=== PATIENT | female | born 1990 | race Caucasian/White ===

== ENCOUNTER 2016-10-15 10:56 | Emergency (ER) ==
[2016-10-15 11:02] VITALS: BMI 52.8
[2016-10-15] MEDS ORDERED: TYLENOL PO STA (11:28)
[2016-10-15 11:38] LABS: FLU INTERNAL QC INTERNAL QC VALID; RAPID FLU A NEGATIVE (NEGATIVE); RAPID FLU B NEGATIVE (NEGATIVE)
--- NOTE | 2016-10-15 11:49 | ED.PDOC ---
General ED Provider: Dr. ISHA CUETO Chief Complaint: Cough Stated Complaint: Patient is a 26 year old female who comes to the Er with cough sore throat nasal conjestion and body aches for two days. Time Seen by Physician: 11:47 Mode of Arrival: Walk-In Information Source: Patient Exam Limitations: No limitations Primary Care Provider: NILAM OROZCO Nursing and Triage Documentation Reviewed and Agree: Yes Review of Systems - Review Of Systems Constitutional: Reports: No symptoms Eyes: Reports: Drainage Ears, Nose, Mouth, Throat: Reports: No symptoms Respiratory: Reports: Cough Cardiac: Reports: No symptoms GI: Reports: No symptoms : Reports: No symptoms Musculoskeletal: Reports: No symptoms Skin: Reports: No symptoms Neurological: Reports: No symptoms Endocrine: Reports: No symptoms Hematologic/Lymphatic: Reports: No symptoms All Other Systems: Reviewed and Negative Past Medical History - Past Medical History Previously Healthy: Yes Endocrine: Reports: None Cardiovascular: Reports: None Respiratory: Reports: None Hematological: Reports: None Gastrointestinal: Reports: None Genitourinary: Reports: None Neuro/Psych: Reports: None Musculoskeletal: Reports: None Cancer: Reports: None Last Menstrual Period: sep 26 - Surgical History General Surgical History: Reports: , Adenoidectomy - Family History Family History: Reports: Unknown - Social History Smoking Status: Former smoker Hx Substance Use: No Alcohol Screening: None Physical Exam - Physical Exam Appearance: Ill-appearing, Well-nourished Ill-appearing: Mild Eyes: ARNOLD, EOMI, Conjunctiva clear ENT: Ears normal, Nose normal, Oropharynx normal Respiratory: Airway patent, Breath sounds clear, Breath sounds equal, Respirations nonlabored Cardiovascular: RRR, Pulses normal, No rub, No murmur GI/: Soft, Nontender, No masses, Bowel sounds normal, No Organomegaly Musculoskeletal: Normal strength, ROM intact, No edema, No calf tenderness Skin: Warm, Dry, Normal color Neurological: Sensation intact, Motor intact, Reflexes intact, Cranial nerves intact, Alert, Oriented Psychiatric: Affect appropriate, Mood appropriate Critical Care Note - Critical Care Note Total Time (mins): 0 Course - Course Orders, Labs, Meds: Lab Review 10/15/16 11:15 Influenza A (Rapid) Negative Influenza B (Rapid) Negative Orders Category Date Time Status MOLECULAR GROUP A STREP Stat LAB 10/15/16 11:15 Completed RAPID FLU A/B Stat LAB 10/15/16 11:15 Completed STREP SCREEN Stat LAB 10/15/16 11:15 Completed Acetaminophen [Tylenol] MEDS 10/15/16 11:28 Discontinued 1,000 mg PO ONCE STA Medications Discontinued Medications Generic Name Dose Route Start Last Admin Trade Name Derek PRN Reason Stop Dose Admin Acetaminophen 1,000 mg 10/15/16 11:28 10/15/16 11:46 Tylenol PO 10/15/16 11:29 1,000 mg ONCE STA Administration Vital Signs: Temp Pulse Resp BP Pulse Ox 10/15/16 11:51 98.8 F 106 H 20 136/84 97 10/15/16 10:56 99.7 F H 120 H 20 171/89 H 97 Departure - Departure Time of Disposition: 11:49 Disposition: HOME SELF-CARE Discharge Problem: Cold Instructions: Cold Symptoms (ED), Viral Syndrome (ED), Allergies (ED) Condition: Fair Pt referred to PMD for follow-up: Yes Additional Instructions: May use over the counter decongestants; keep well hydrated. Follow up with primary care as needed - call for appointment. Allergies/Adverse Reactions: Allergies tramadol Adverse Reaction (Verified 10/15/16 11:01) Home Medications: Ambulatory Orders 1 [No Reported Medications] 0 mg PO DAILY 03/19/13 Disposition Discussed With: Patient
[2016-10-15 11:53] VITALS: BP 136/84; TEMP 98.8
== END 2016-10-15 12:16 | disposition home or self-care (01) ==
LOC: ED 10:56
DX: J00 Acute nasopharyngitis [common cold] (principal)
CPT/HCPCS: 87651; 87804; 87880; 99282